=== PATIENT | female | born 1975 | race Caucasian/White ===

== ENCOUNTER → 2023-07-02 06:18 | Day surgery (SDC) | payer BC, SELFPAY | LOC: GI 06:18 | PROVIDERS: ATTENDING PHYSICIAN Internal Medicine | DX: D50.9 Iron deficiency anemia, unspecified (principal); K56.2 Volvulus; K64.9 Unspecified hemorrhoids | CPT/HCPCS: 45378 ==

== ENCOUNTER → 2023-11-25 06:46 | Outpatient (REF) | payer BC, SELFPAY | LOC: RAD 06:46 | PROVIDERS: ATTENDING PHYSICIAN Internal Medicine Medical Oncology; FAMILY PHYSICIAN Family Medicine; REFERRING PHYSICIAN Internal Medicine | DX: R10.9 Unspecified abdominal pain (principal); D50.0 Iron deficiency anemia secondary to blood loss (chronic) | CPT/HCPCS: 74176 ==

== ENCOUNTER 2024-02-14 17:55 | Emergency (ER) | payer BC, SELFPAY ==
[2024-02-14 17:57] VITALS: BP 126/84
[2024-02-14 18:27] LABS: % Basophils 0.4 % (0-2); % Eosinophils 1.9 % (0-6); % Immature Granulocytes 0.1 % (0-0.5); % Lymphocytes 27.7 % (20.5-51.1); % Monocytes 6.7 % (1.7-9.3); % Neutrophils 63.2 % (42.2-75.2); Absolute Eosinophils 0.1 10^3/uL (0-0.7); Absolute Monocytes 0.5 10^3/uL (0.1-0.6); Absolute Neutrophils 4.5 10^3/uL (1.4-6.5); Hematocrit 37.7 % (37.0-47.0); Hemoglobin 12.3 g/dL (12.0-16.0); Mean Corp Hgb Conc. 32.6 g/dL (33.0-37.0); Mean Corpuscular Hgb 31.3 pg (27.0-31.0); Mean Corpuscular Volume 95.9 fL (81.0-99.0); Mean Platelet Volume 10.1 fL (7.4-10.4); Nucleated Red Blood Cells % 0 %; Platelet Count 244 10^3/uL (130-400); Red Blood Cell Count 3.93 10^6/uL (4.20-5.40); Red Cell Dist. Width 13.4 % (11.5-14.5); White Blood Cell Count 7.2 10^3/uL (4.8-10.8)
[2024-02-14 18:38] LABS: HCG, Serum Qualitative Screen Negative
[2024-02-14 18:42] LABS: ALT (SGPT) 16 U/L (0-35); AST (SGOT) 21 U/L (14-36); Albumin 4.5 g/dl (3.5-5.0); Alkaline Phosphatase 38 U/L (38-126); Blood Urea Nitrogen 18 mg/dl (7-17); Calcium 8.6 mg/dl (8.4-10.2); Carbon Dioxide 25 mmol/L (22-30); Chloride 103 mmol/L (98-107); Glucose 90 mg/dl (70-99); Sodium 140 mmol/L (135-145); Total Bilirubin 0.7 mg/dl (0.2-1.3); Total Protein 7.4 g/dl (6.3-8.2); eGFR > 60.00
[2024-02-14 19:11] LABS: TSH 1.75 uIU/ml (0.47-4.68)
--- NOTE | 2024-02-14 21:06 | ED.GENMED ---
History of Present Illness
General
Chief Complaint: Dizziness
Source: patient
Exam Limitations: none
Time Seen by Provider: 02/14/24 20:28
History of Present Illness
History of Present Illness:
This is a 49 year old female that comes in with c/o dizziness. States that this started last January after she was diagnosed with Luis's thyroiditis. States that she has been feeling dizzy. States that she feels like she is going to fall over.
States that she has seen Network Operations Center Engineer, Electro Mechanical Technician. GI. State that she gets sweaty and she has to sit down or she will pass out. States that she has constant lower abd pain/right flank and has had an US which shows Fibroids and cyst. States that
she has a headache with dizziness and some SOB. Denies any fever, chills, chest pain, abd pain, nausea, vomiting, diarrhea, urinary burning.
Past History
Past History
ED Past Medical History: Hypothyroidism and Other (Left carotid artery tear, Anemia, Lyme, Fibroids and cyst)
ED Past Surgical History: None and Orthopedic (Left shoulder orthoscopic, facial reconstruction)
Social History
Tobacco: Non-smoker
Alcohol: None
Drug: None
Personal:
Living: with family
Employment: Employed
Review of Systems
Review of Systems
All Other Systems: ROS reviewed and negative except as documented in HPI and ROS
Constitutional: Reports no symptoms; Denies fever or chills
EENT: Reports no symptoms
Respiratory: Reports trouble breathing; Denies cough
Cardiac: Reports no symptoms; Denies chest pain
ABD/GI: Denies abdominal pain, nausea, vomiting or diarrhea
: Reports no symptoms; Denies dysuria, frequency or urgency
Musculoskeletal: Reports no symptoms
Skin: Reports no symptoms
Neurological: Reports dizzy and headache
Psychiatric: Reports no symptoms
Phy Exam
General Physical Exam
General Presentation: well appearing and no apparent distress
General age: appears stated age
General Skin: warm and dry
General Habitus: normal
General Mental: alert
General Hydration: appears well hydrated
ENT Exam
ENT Exam: TM's normal, pharynx normal and neck supple
Eye Exam
Eye Exam: EOMI
Cardiovascular Exam
Cardiovascular Exam: regular rate/rhythm, no edema, no murmur and normal peripheral pulses
Pulmonary Exam
Pulmonary Exam: lungs clear, no respiratory distress, no rales, chest non tender, no crackles, no rhonchi, no wheezing and no cough
Gastrointestinal Exam
Gastrointestinal Exam: normal bowel sounds, soft, no organomegaly, no pulsatile mass, non distended and tender (Chronic lower abd tenderness with palpation)
Musculoskeletal Exam
Musculoskeletal Exam: full ROM and no edema
Skin Exam
Skin Exam: normal color, warm/dry, no rash and no petechia
Psychiatric Exam
Psychiatric Exam: normal mood/affect
Course
Orders/Labs/Results
Orders:
Orders
02/14/24 18:04
EKG [Electrocardiogram (*1)] Urgent
Reason for Study: Vertigo / Dizzy
EKG- Treatment ONCE
Test Result ONCE
02/14/24 18:11
Complete Blood Count/With Diff Urgent
Comprehensive Metabolic Panel Urgent
HCG, Serum Qualitative Screen Urgent
TSH Urgent
02/14/24 18:13
CT Head W/o Iv Contrast Urgent
Comment:
Reason For Exam: dizziness
Abnormal Lab Results
02/14/24
18:11
RBC 3.93 L 10^6/uL
(4.20-5.40)
MCH 31.3 H pg
(27.0-31.0)
MCHC 32.6 L g/dL
(33.0-37.0)
BUN 18 H mg/dl
(7-17)
02/14/24 18:11
02/14/24 18:11
Very slight Dehydration. HCG negative. TSH normal at 1.75
Vital Signs
Initial and Last Documented VS:
Initial Vital Signs
Temp Pulse Resp BP Pulse Ox
98.5 F 68 16 126/84 100
02/14/24 17:57 02/14/24 17:57 02/14/24 17:57 02/14/24 17:57 02/14/24 17:57
Last Documented Vital Signs
Temp Pulse Resp BP Pulse Ox
98.5 F 65 16 120/83 98
02/14/24 17:57 02/14/24 21:25 02/14/24 21:25 02/14/24 21:25 02/14/24 21:25
MDM/Problems Addressed
Differential Diagnosis Includes:
Dehydration. Vertigo,
MDM/Problems Addressed:
This is a 49 year old female that come in with c/o dizziness that has been going on and off for a year.
Will check labs. CT head. Discussed with patient that she can try Antivert to see if this helps. No one has tried this yet. Patient zheng also follow up with a Public Safety Teacher for further evaluation. Patient to return with any concerns.
Chronic conditions affecting care:
NA
Acute Exacerbation and/or Progression of Chronic Illness:
NA
*Radiology
Radiology exam reviewed: radiology read reviewed (CT head-No acute intracranial abnormality)
*Pulse Oximetry
Patient hypoxic: no
*EKG
Interpreted by ED Provider?: Yes
Heart Rate: 58
Rate: bradycardiac
Rhythm: sinus
[place]: normal axis
Interval: normal interval
QRS Pattern: normal QRS
Ischemia: no ischemia
*Rotary Envelope Machine Operator Interpretation
Rate: Rotary Envelope Machine Operator- N/A
*Critical Care Note
Total Time (30-74mins, 75-104mins- exclusive of procedures): Not Applicable
ED Attending Note
-
Portions of this chart may have been created with voice recognition software.� Occasional wrong word or��sound alike� substitutions may have occurred due to the inherent limitations of voice recognition software.
Discharge Plan
Departure
Patient Disposition: Home (Routine Discharge)
Date of Disposition: 02/14/24
Time of Disposition: 21:17
Patient with high blood pressure during this ER visit?: No
Condition: Good
Covid-19: Not Applicable
Discharge Problem:
Dizziness
Instructions: Dizziness
Prescriptions:
New
meclizine [Antivert] 50 mg tablet
50 mg PO BID PRN (Reason: dizziness) Qty: 7 0RF
No Action
hydrocodone-acetaminophen 5-325 mg tablet
1 tab PO Q6H PRN (Reason: pain) Qty: 10 0RF
doxycycline hyclate 100 mg capsule
100 mg PO BID 10 Days Qty: 20 0RF
Referrals:
Donovan Whalen MD [Family Provider] - Call in 1-3 days for appt
Activity Restrictions/Additional Instructions:
As discussed, your blood work shows very slight dehydration. Otherwise it is normal. Your CT of the head is normal. Please increase your water intake to 8-8oz glasses daily. You have had a Prescription for Antivert sent to your pharmacy. You may
try this when you are dizzy and see if this helps. Follow up with the Public Safety Teacher and your family doctor for further evaluation. IF YOU HAVE ANY OTHER CONCERNS PLEASE RETURN TO THE EMERGENCY ROOM.
Interventions
Interventions:
*Risk Screen - Suicide Last Done: 02/14/24 17:57
*General Assessment Last Done: 02/14/24 17:57
*Neglect/Abuse Screening Last Done: 02/14/24 21:52
ED- Fall Risk Assessment Last Done: 02/14/24 21:30
*ED COVID-19 Vaccine History Last Done: 02/14/24 17:57
*Nursing Disposition Last Done: 02/14/24 21:52
ED- Neurological Assessment Last Done: 02/14/24 21:30
Discharge Date and Time
Discharge Date/Time: 02/14/24 21:53
Print Language: [id number]
[2024-02-14 21:25] VITALS: BP 120/83
== END 2024-02-14 21:53 | disposition home or self-care (01) ==
LOC: EMR 17:55
PROVIDERS: Emergency Medicine; EMERGENCY PHYSICIAN Emergency Medicine; FAMILY PHYSICIAN Family Medicine
DX: R42 Dizziness and giddiness (principal); E06.3 Autoimmune thyroiditis
CPT/HCPCS: 99284; 70450; 80053; 84443; 84703; 85025; 93005